=== PATIENT | female | born 1965 | race Two or more races ===

== ENCOUNTER 2023-10-26 09:05 | Inpatient (IN) | payer BC, MEDICARE ==
[~2023-10-26] VITALS: Ht 170.2 cm; Wt 91.3 kg
[~2023-10-26 09:05] MED LIST: BACL20TA PO; GABA400C PO; IBUP-1456 PO
[2023-10-26] MEDS ORDERED: MIDAZOLAM HCL 2MG/2ML 2ml VIAL (1mg/ml) ONE (09:57)
[2023-10-26] MEDS ORDERED: DexAMETHasone SOD PHOS 10MG/1ML VIAL INJ ONE (09:57)
[2023-10-26] MEDS ORDERED: NEOSTIGMINE 1 MG/ML INJ (10mg/10ML VIAL) ONE (09:57)
[2023-10-26] MEDS ORDERED: ROCURONIUM 10MG/ML 10ML VIAL IV ONE (09:57)
[2023-10-26] MEDS ORDERED: ONDANSETRON HCL 4 MG/2 ML VIAL ONE (09:57)
[2023-10-26] MEDS ORDERED: PROPOFOL 10 MG/ML 20 ML IV ONE ×4 (09:57→14:20)
[2023-10-26] MEDS ORDERED: fentaNYL CITRATE 100 MCG/2 ML VL ONE ×2 (09:57→13:58)
[2023-10-26] MEDS ORDERED: TRANEXAMIC ACID 20 ML ONE (10:51)
[2023-10-26] MEDS ORDERED: MORPHINE SULFATE INJ 2 MG/ml SYRG IV PRN ×2 (11:00→14:45)
[2023-10-26] MEDS ORDERED: METOCLOPRAMIDE HCL 5MG/ml INJ 2ml VIAL IV PRN (11:00)
[2023-10-26] MEDS ORDERED: HYDROmorphone HCL 2 MG/ML VL/or syr IV PRN (11:00)
[2023-10-26] MEDS ORDERED: ceFAZolin 2 GM/D5W100ml 100 ML IV ONE (11:01)
[2023-10-26] MEDS ORDERED: ACETAMINOPHEN 325 MG TAB PO PRN (14:45)
[2023-10-26] MEDS ORDERED: ONDANSETRON HCL 4 MG/2 ML VIAL IV PRN (14:45)
[2023-10-26] MEDS ORDERED: ceFAZolin 1GM/50ML 50 ML IV SCH (14:45)
[2023-10-26] MEDS ORDERED: NITROGLYCERIN 0.4 MG SL TAB SL PRN (14:45)
[2023-10-26] MEDS ORDERED: ALBUTEROL SULF 2.5 MG/0.5ML(0.5%) NEB SOLN NEB ONE (15:45)
[2023-10-26] MEDS ORDERED: IPRATROPIUM BROM 0.5 MG/2.5ML INH SOL NEB ONE (15:45)
[2023-10-26] MEDS: HYDROmorphone HCL 2 MG/ML VL/or syr IV PRN ×3 (15:46→16:33)
[2023-10-26] MEDS ORDERED: HYDROmorphone HCL 2 MG/ML VL/or syr ONE (15:46)
[2023-10-26] MEDS ORDERED: HYDROcodone-ACET 10/325MG TAB ONE (16:01)
[2023-10-26] MEDS: HYDROcodone-ACET 10/325MG TAB PO PRN ×2 (16:02→23:46)
[2023-10-26] MEDS ORDERED: CYCLOBENZAPRINE HCL 10 MG TAB PO ONE (16:09)
[2023-10-26 16:11] VITALS: O2SAT 95
[2023-10-26 18:00] VITALS: BP 120/56; PULSE 79; RESP 17; TEMP 97.6; O2SAT 97
[2023-10-26 18:44] VITALS: BP 120/56; PULSE 82; PULSE 85; RESP 18; TEMP 98.6; O2SAT 97
[2023-10-26 20:20] VITALS: PULSE 64; RESP 18; O2SAT 97
[2023-10-26] MEDS: MORPHINE SULFATE INJ 2 MG/ml SYRG IV PRN (21:20)
[2023-10-26 22:00] VITALS: BP 130/72; PULSE 69; RESP 18; TEMP 97.8; O2SAT 97
[2023-10-26] MEDS ORDERED: CYCLOBENZAPRINE HCL 10 MG TAB PO SCH (22:00)
[2023-10-26] MEDS: DOCUSATE SOD 100 MG CAP PO SCH (22:23)
[2023-10-27] VITALS (8 sets, daily range): BP systolic 114–134; BP diastolic 63–76; PULSE 75–87; RESP 16–19; TEMP 98–98.6; O2SAT 91–98
[2023-10-27] MEDS: D5W/SOD CHLO 0.9% 1,000 ML IV SCH ×3 (00:56→20:45)
[2023-10-27] MEDS: MORPHINE SULFATE INJ 2 MG/ml SYRG IV PRN ×5 (01:31→22:51)
[2023-10-27] MEDS: CYCLOBENZAPRINE HCL 10 MG TAB PO SCH ×3 (07:55→15:57)
[2023-10-27] MEDS: DOCUSATE SOD 100 MG CAP PO SCH ×2 (10:30→22:49)
[2023-10-27] MEDS: HYDROcodone-ACET 10/325MG TAB PO PRN ×2 (10:37→20:30)
[2023-10-27] MEDS: FERROUS SULFATE 300 MG/5 ML ORAL LIQ PO SCH (22:49)
[2023-10-28] VITALS (7 sets, daily range): BP systolic 118–151; BP diastolic 47–86; PULSE 84–109; RESP 16–21; TEMP 98–98.8; O2SAT 91–98
[2023-10-28] MEDS: CYCLOBENZAPRINE HCL 10 MG TAB PO SCH ×3 (00:12→16:12)
[2023-10-28] MEDS: MORPHINE SULFATE INJ 2 MG/ml SYRG IV PRN ×3 (05:43→21:16)
[2023-10-28 06:12] LABS: Basophils # (auto) 0 10 ^3/uL (0-0.2); Basophils % (auto) 0.3 % (0.0-2.0); Eosinophils # (auto) 0 10 ^3/uL (0-0.8); Eosinophils % (auto) 0.1 % (0.0-7.0); Hematocrit 40.7 % (36.0-46.0); Hemoglobin 13.3 g/dL (12.2-16.2); Lymphocytes # (auto) 1.9 10 ^3/uL (0.4-5.4); Lymphocytes % (auto) 17.6 % (10.0-50.0); Mean Corpuscular Hgb Conc. 32.7 g/dL (32.0-36.0); Mean Corpuscular Volume 85.6 fL (80.0-100.0); Monocytes # (auto) 0.9 10 ^3/uL (0-1.3); Monocytes % (auto) 8.9 % (0.0-12.0); Neutrophils # (auto) 7.8 10 ^3/uL (1.6-8.6); Neutrophils % (auto) 73.1 % (37.0-80.0); Red Blood Cells 4.75 10^6/uL (4.0-5.20); White Blood Cell 10.6 10^3/uL (4.4-10.8)
[2023-10-28 06:14] LABS: Anion Gap 7 (5-15); Carbon Dioxide 25 mmol/L (20-30); Chloride 105 mmol/L (98-107); Potassium 3.3 mmol/L (3.5-5.1); Sodium 137 mmol/L (136-145)
[2023-10-28 06:16] LABS: Calcium 8.8 mg/dL (8.7-10.4)
[2023-10-28 06:21] LABS: BUN/Creatinine Ratio 9.8 (10.0-20.0); Blood Urea Nitrogen 5 mg/dL (9-23); Glucose 101 mg/dL (74-106)
[2023-10-28] MEDS: D5W/SOD CHLO 0.9% 1,000 ML IV SCH (06:45)
[2023-10-28] MEDS ORDERED: D5W/SOD CHLO 0.9% 1,000 ML IV SCH (08:55)
[2023-10-28] MEDS: FERROUS SULFATE 300 MG/5 ML ORAL LIQ PO SCH ×2 (08:59→21:08)
[2023-10-28] MEDS: DOCUSATE SOD 100 MG CAP PO SCH ×2 (08:59→21:08)
[2023-10-28] MEDS: HYDROcodone-ACET 10/325MG TAB PO PRN ×2 (09:00→16:35)
[2023-10-28] MEDS ORDERED: POTASSIUM CHL 20 Meq TABLET PO ONE (11:30)
[2023-10-29] MEDS: MORPHINE SULFATE INJ 2 MG/ml SYRG IV PRN (02:08)
[2023-10-29 04:20] VITALS: BP 131/77; PULSE 91; RESP 20; TEMP 98.6; O2SAT 98
[2023-10-29] MEDS: HYDROcodone-ACET 10/325MG TAB PO PRN ×2 (04:51→11:08)
[2023-10-29 08:00] VITALS: BP 147/93; PULSE 75; PULSE 80; RESP 16; TEMP 98.8; O2SAT 94
[2023-10-29] MEDS: CYCLOBENZAPRINE HCL 10 MG TAB PO SCH ×3 (08:50→15:29)
[2023-10-29] MEDS: FERROUS SULFATE 300 MG/5 ML ORAL LIQ PO SCH (08:50)
[2023-10-29] MEDS: DOCUSATE SOD 100 MG CAP PO SCH (08:50)
[2023-10-29 10:39] VITALS: PULSE 80; RESP 16; TEMP 98; O2SAT 94
[2023-10-29 10:40] VITALS: BP 147/93; PULSE 80; RESP 18; TEMP 98.8; O2SAT 94
[2023-10-29 13:24] VITALS: BP 138/87; PULSE 81; RESP 17; TEMP 97.8; O2SAT 95
[2023-10-29] MEDS ORDERED: SENN-105 PO (14:51)
[2023-10-29] MEDS ORDERED: HYDR-4798 PO (14:51)
[2023-10-29] MEDS ORDERED: NALO4SPR2 (14:51)
[2023-10-29 16:32] VITALS: BP 138/87; PULSE 81; RESP 17; TEMP 97.8; O2SAT 95
== END 2023-10-29 17:20 | disposition home or self-care (01) | DRG 460 ==
LOC: SUR 09:05 → TELE 14:36 → TELE-EAST 17:37
PROVIDERS: ADMIT Orthopaedic Surgery; ATTEND Hospitalist
PROC: 0SG107J Fusion of 2 or more Lumbar Vertebral Joints with Autologous Tissue Substitute, Posterior Approach, Anterior Column, Open Approach (ICD-10-PCS; 2023-10-26)
PROC: 01NB0ZZ Release Lumbar Nerve, Open Approach (ICD-10-PCS; 2023-10-26)
PROC: 00NY0ZZ Release Lumbar Spinal Cord, Open Approach (ICD-10-PCS; 2023-10-26)
PROC: 0SP004Z Removal of Internal Fixation Device from Lumbar Vertebral Joint, Open Approach (ICD-10-PCS; 2023-10-26)
PROC: 4A11X4G Monitoring of Peripheral Nervous Electrical Activity, Intraoperative, External Approach (ICD-10-PCS; 2023-10-26)
PROC: 0SW004Z Revision of Internal Fixation Device in Lumbar Vertebral Joint, Open Approach (ICD-10-PCS; principal; 2023-10-26 11:17)
DX: M96.1 Postlaminectomy syndrome, not elsewhere classified (principal); M54.17 Radiculopathy, lumbosacral region; M47.816 Spondylosis without myelopathy or radiculopathy, lumbar region
CPT/HCPCS: 36415; 72100; 76000; 80048; 85025; 86850; 86900; 86901; 94640; 97110; 97116; 97163; 97530; G0378; J1100; J2250; J2405; J2704; J7042